=== PATIENT | male | born 1980 | race Caucasian/White ===

== ENCOUNTER 2024-01-07 20:30 | Emergency (ER) | payer OTHER, SELFPAY ==
[2024-01-07] VITALS (8 sets, daily range): BP systolic 125–154; BP diastolic 74–91; PULSE 79–113; RESP 20; TEMP 36.7; O2SAT 96–99; BMI 24.4
--- NOTE | 2024-01-07 20:42 | ED.ALLEREA ---
HPI - Allergic Reaction General Time Seen by Provider: 20:42 Date Seen: 01/07/24 Chief complaint: Allergic Reaction Stated complaint: Allergic reaction, face/tongue swelling Time Seen by Provider: 01/07/24 20:40 Source: patient and RN notes reviewed Mode of arrival: ambulatory Limitations: no limitations History of Present Illness HPI narrative: This 43-year-old male presents ambulatory to the ER with concern of an allergic reaction. Within 20 minutes of taking ibuprofen tonight both of his lips or swelling. The swelling actually started around his eyes tonight and has never been around his eyes. His cheeks and lower face actually swelled, he started to become quite concerned when he was feeling like his tongue was swelling. He did try to lie down in felt a sense like there was mucus in his lungs. He is admitting that he is having no difficulty breathing. No history of asthma. He took ibuprofen about a month ago and had some lip swelling, nothing to this extent though. He stayed away from the ibuprofen for a full month thinking he would be fine. He took a tonight for some foot pain that he is experiencing from playing pickle ball. He otherwise is on no medicines. He started having allergic issues back in August on return from [place]. He has been to his doctor, did do a 2 week course of prednisone at 1 point. In August it just started with 1/2 of his upper lip being swollen, would switch to the other side. He has had progressively worsening symptoms. He has not gone in with all of his facial swelling. He has also started to notice some hives. About a week ago he was running late, stopped at an [employer], had a burger fries and a root beer. He had a cheap pizza at 1 point, had some hives with that. Benadryl did decrease the symptoms. He otherwise has been well in between. He has not been seen by an forming fixer. complaint: allergic reaction and facial swelling Related Data Home Medications ?Medication ?Instructions ?Recorded ?Confirmed No Known Home Medications 01/07/24 01/07/24 Allergies Allergy/AdvReac Type Severity Reaction Status Date / Time ibuprofen Allergy Intermediate Face/Tongue Verified 01/07/24 20:40 Swelling Review of Systems Status of ROS Reports: 6 or more systems reviewed and unremarkable except as noted in History and below [facility] Medical History (Updated 01/07/24 @ 21:08 by Aura Domínguez MD) No significant past medical history Surgical History (Updated 01/07/24 @ 21:03 by Luis Alberto Chin RN) No significant past surgical history Social History Smoking Status: Never smoker Second hand tobacco smoke exposure: No How often do you have a drink containing alcohol: never AUDIT-C Alcohol total score: 0 Non-prescribed substance use: denies use Exam Const: Vital Signs, click to edit/add: Vital Signs - 24 hr 01/07/24 20:37 01/07/24 20:45 01/07/24 20:48 Temperature 98.0 F Pulse Rate 113 H Pulse Rate [Right Pulse Oximeter] 85 Respiratory Rate 20 20 Blood Pressure 154/88 H Blood Pressure [Le ft Upper Arm] 152/89 H Pulse Oximetry 97 99 98 Oxygen Delivery Me thod Room Air 01/07/24 21:01 Temperature Pulse Rate 104 H Pulse Rate [Right Pulse Oximeter] Respiratory Rate 20 Blood Pressure 134/85 Blood Pressure [Le ft Upper Arm] Pulse Oximetry 98 Oxygen Delivery Me thod This 43-year-old male is alert, interactive, no apparent distress but obvious facial swelling. He has swelling of his eyelids both upper and lower, still can see into his eyes however and conjunctivae are normal, conjugate gaze. He has swelling on both of his cheeks without any erythema, both upper and lower lips are significantly swollen. He can open his mouth, I can see back just into the posterior pharynx but he does have significant tongue edema. His speech is still normal, can speak in complete sentences. Despite his lips and tongue being quite swollen, his speech is still quite understandable and seems to be sustained. Neck is supple, no adenopathy. Lungs are clear, good air entry, no wheezing or crackles. CV regular, slightly fast, no murmur. Abdomen is soft, no rebound or guarding, no organomegaly. He was ambulatory into the ED of his own accord. Other skin visualized has no evidence of any rash or hives. Documenting provider has reviewed patient's vital signs: yes Course Course ED Course: Patient was given an IV, put on cardiac monitoring and pulse oximetry. 0.3 mg of epinephrine was given. We did order 125 mg Solu-Medrol, 50 mg IV Benadryl and 20 mg IV Pepcid. Have discussed with patient that he has angio edema he will absolutely need to see an forming fixer. Did order tryptase level but this is not likely to support anaphylaxis and may very well be normal. Will do the basic lab workup in up-to-date for angioedema which includes a complement for level, CBC, liver panel, basic metabolic panel, C reactive protein and sed rate. He will be watched closely. If there is any sense of him having increasing oral pharyngeal symptoms, will need to have intubation done preemptively. Reevaluation(s) Time of Reevaluation #1: 20:55 Reevaluation #1: Patient feels like his tongue is slightly improved. Will continue to be monitored quite closely. Time of Reevaluation #2: 21:30 Reevaluation #2: Rechecked patient, he states he feels like the tongue has gone down a bit. Certainly feel his facial swelling is stable to maybe just slightly improved. He is able to open his mouth, tongue is still swollen and thick but agree with him that I can see a little easier into the posterior pharynx. His oral facial swelling is certainly not progressing at this time. He continues to need to be monitored. Dr. Valladares will be assuming care. Vital Signs Vital signs: Initial Vital Signs Temperature 98.0 F 01/07/24 20:37 Temperature Source Temporal Artery Scan 01/07/24 20:37 Pulse Rate 85 01/07/24 20:37 Respiratory Rate 20 01/07/24 20:37 Blood Pressure 152/89 H 01/07/24 20:37 Blood Pressure Mean 110 H 01/07/24 20:37 Blood Pressure Position Sitting 01/07/24 20:37 Pulse Oximetry 97 01/07/24 20:37 Oxygen Delivery Method Room Air 01/07/24 20:37 Vital Signs Temperature 98.0 F 01/07/24 20:37 Pulse Rate 85 01/07/24 20:37 Respiratory Rate 20 01/07/24 20:37 Blood Pressure 152/89 H 01/07/24 20:37 Pulse Oximetry 97 01/07/24 20:37 Oxygen Delivery Method Room Air 01/07/24 20:37 Temperature 98.0 F 01/07/24 23:46 Pulse Rate 79 01/07/24 23:46 Respiratory Rate 20 01/07/24 23:46 Blood Pressure 135/74 01/07/24 23:46 Pulse Oximetry 98 01/07/24 23:45 Oxygen Delivery Method Room Air 01/07/24 23:45 Medications Administered Medications: Discontinued Medications Generic Name Dose Route Start Last Admin Trade Name Nava PRN Reason Stop Dose Admin Dexamethasone 10 mg 01/07/24 20:44 01/07/24 21:08 Dexamethasone 10 Mg/Ml Inj IVP 01/07/24 20:45 Not Given ONCE ONE Diphenhydramine HCl 50 mg 01/07/24 20:44 01/07/24 20:53 Diphenhydramine 50 Mg/Ml Inj IVP 01/07/24 20:45 50 mg ONCE ONE Administration Epinephrine HCl 0.3 mg 01/07/24 20:47 01/07/24 20:45 Epinephrine 0.3 Mg Pen IM 01/07/24 20:48 0.3 mg ONCE ONE Administration Famotidine 20 mg 01/07/24 20:47 01/07/24 20:51 Famotidine 10 Mg/Ml Inj IVP 01/07/24 20:48 20 mg ONCE ONE Administration Sodium Chloride 1,000 mls @ 500 mls/hr 01/07/24 20:45 01/07/24 21:48 0.9 % Sodium Chloride 1000 Ml IV 01/07/24 22:44 Infused .Q2H GIOVANY Infusion Methylprednisolone Sodium Succinate 125 mg 01/07/24 21:07 01/07/24 20:50 Methylprednisolone Sod Succ 62.5 Mg/Ml (125) IVP 01/07/24 21:08 125 mg ONCE ONE Administration MDM - Allergic Reaction Lab Data Labs: Lab Results 01/07/24 Range/Units 20:50 WBC 8.88 (4.50-11.00) K/uL RBC 5.27 (4.30-5.90) m/uL Hgb 16.4 (13.5-17.5) gm/dL Hct 46.8 (37.0-53.0) % MCV 89 (80-100) fL MCH 31 (26-34) pg MCHC 35 (32-36) gm/dL RDW Coeff of Juanita 12.1 (11.5-15.5) % Plt Count 267 (140-440) K/uL Neut % (Auto) 60.5 (42.0-72.0) % Lymph % (Auto) 28.5 (20-44) % Lewis % (Auto) 8.4 (0.0-11.0) % Eos % (Auto) 2.1 (0.0-7.0) % Baso % (Auto) 0.3 (0.0-3.0) % Neut # (Auto) 5.36 (1.7-7.0) K/uL Lymph # (Auto) 2.53 (0.90-2.90) K/uL Lewis # (Auto) 0.70 (0.00-0.90) K/UL Eos # (Auto) 0.19 (0.00-0.50) K/uL Baso # (Auto) 0.03 (0.00-0.30) K/uL Abs Immat Gran (auto) 0.02 (0.00-0.30) K/uL Imm/Tot Granulo (auto) 0.2 % ESR 2 (2-15) mm/hr Sodium 140 (135-149) mmol/L Potassium 3.3 L (3.6-5.1) mmol/L Chloride 104 (96-114) mmol/L Carbon Dioxide 26 (20-32) mmol/L Anion Gap 10 (7-15) mEq/L BUN 20 (5-24) mg/dL Creatinine 1.1 (0.5-1.5) mg/dL Estimated Creat Clear 88.38 Estimated GFR 86 ml/min Glucose 103 (60-115) mg/dL Calcium 8.9 (8.4-10.6) mg/dL Total Bilirubin 0.8 (0.1-1.5) mg/dL Direct Bilirubin 0.4 (0.0-0.5) mg/dL AST 30 (12-35) U/L ALT 32 (4-50) U/L Alkaline Phosphatase 82 (40-150) U/L C-Reactive Protein < 0.5 L (0.5-1.0) mg/dL Total Protein 7.7 (6.0-8.3) g/dL Albumin 5.1 H (3.3-5.0) g/dL Tryptase 7.4 (<=10.9) ug/L Complement C4 15 (10-40) mg/dL Critical Care Time Critical Care Time Critical Care Time: Yes Attestation: The patient required my highest level preparedness to intervene emergently and I personally spent this critical care time directly and personally managing the patient. This critical care time included: Obtaining a history; Examining the patient; Pulse oximetry; Ordering and reviewing of studies; Arranging urgent treatment with development of a management plan; Evaluation of patients response to treatment; Frequent reassessment discussions with other providers. This critical care time was performed to assess and manage the high probability of imminent life-threatening deterioration that could result in multiorgan failure. It was exclusive of separate billable procedures and treating other patients and teaching time. Total Critical Care Time in Minutes: 30 Discharge Plan Discharge Clinical Impression: Angioedema Patient Disposition: Home, Self-Care Condition: Stable Instructions: Angioedema (ED) Additional Instructions: It is imperative that you not take any ibuprofen or any other nonsteroidal anti inflammatory (no Aleve, no aspirin, etc). If you need something for pain, can use Tylenol. You need to contact your primary clinic and have them get you into an forming fixer as soon as possible. Let the forming fixer know that basic labs for workup of angioedema were done here in the ER and they can request records. Benaryl 25-50 mg every 6 hours for the next 3 days Prednisone as directed Follow up with your doctor in the next week to discuss Allergy follow up. Activity Level: No Restrictions Discharge Diet: Regular Prescriptions: No Action No Known Home Medications Stand Alone Forms: [employer] Info Instructions
[2024-01-07] MEDS: EPINEPHrine 0.3 MG PEN IM (20:45)
[2024-01-07] MEDS: METHYLPREDNISOLONE SOD SUCC 62.5 MG/ML (125) 125 MG IVP (20:50)
[2024-01-07] MEDS: 0.9 % SODIUM CHLORIDE 1000 ml 1,000 ML 500 ML IV (20:50)
[2024-01-07] MEDS: FAMOTIDINE 10 MG/ML inj 20 MG IVP (20:51)
[2024-01-07] MEDS: diphenhydrAMINE 50 MG/ML inj IVP (20:53)
[2024-01-07 21:05] LABS: Basophils Absolute Auto 0.03 K/uL (0.00-0.30); Basophils Percent Auto 0.3 % (0.0-3.0); Eosinophils Absolute Auto 0.19 K/uL (0.00-0.50); Eosinophils Percent Auto 2.1 % (0.0-7.0); Hematocrit 46.8 % (37.0-53.0); Hemoglobin* 16.4 gm/dL (13.5-17.5); Immature Granulocytes Abs Auto 0.02 K/uL (0.00-0.30); Immature Granulocytes Pct Auto 0.2 %; Lymphocytes Absolute Auto 2.53 K/uL (0.90-2.90); Lymphocytes Percent Auto 28.5 % (20-44); Mean Corpuscular HGB Conc 35 gm/dL (32-36); Mean Corpuscular Hemoglobin 31 pg (26-34); Mean Corpuscular Volume 89 fL (80-100); Monocytes Percent Auto 8.4 % (0.0-11.0); Neutrophils Absolute Auto 5.36 K/uL (1.7-7.0); Neutrophils Percent Auto 60.5 % (42.0-72.0); Platelet Count* 267 K/uL (140-440); RDW Coefficient of Variation % 12.1 % (11.5-15.5); Red Blood Count 5.27 m/uL (4.30-5.90); White Blood Count* 8.88 K/uL (4.50-11.00)
[2024-01-07 21:08] LABS: Slide Review Reflex No
[2024-01-07 21:18] LABS: Albumin* 5.1 g/dL (3.3-5.0); Chloride* 104 mmol/L (96-114); Sodium* 140 mmol/L (135-149)
[2024-01-07 21:19] LABS: Potassium* 3.3 mmol/L (3.6-5.1)
[2024-01-07 21:21] LABS: Creatinine* 1.1 mg/dL (0.5-1.5); Est. Creatinine Clearance* 88.38; Estimated Glomerular Filt Rate 86 ml/min
[2024-01-07 21:22] LABS: Alanine Aminotransferase* 32 U/L (4-50); Alkaline Phosphatase* 82 U/L (40-150); Anion Gap 10 mEq/L (7-15); Aspartate Amino Transferase* 30 U/L (12-35); Bilirubin Direct* 0.4 mg/dL (0.0-0.5); Bilirubin Total* 0.8 mg/dL (0.1-1.5); Blood Urea Nitrogen* 20 mg/dL (5-24); Calcium* 8.9 mg/dL (8.4-10.6); Carbon Dioxide* 26 mmol/L (20-32); Glucose* 103 mg/dL (60-115); Total Protein* 7.7 g/dL (6.0-8.3)
[2024-01-07 21:26] LABS: C Reactive Protein* < 0.5 mg/dL (0.5-1.0)
[2024-01-07 22:03] LABS: Erythrocyte SedimentationRate* 2 mm/hr (2-15)
[2024-01-10 16:59] LABS: Complement Component 4 15 mg/dL (10-40)
== END 2024-01-07 23:46 | disposition home or self-care (01) ==
PROVIDERS: Emergency Provider Family Medicine; PCP Family Medicine
DX: H57.89 Other specified disorders of eye and adnexa (principal); T78.40XA Allergy, unspecified, initial encounter
CPT/HCPCS: 36415; 80053; 82248; 83520; 85025; 85651; 86140; 86160; 94761; 96372; 96374; 96375; 99284; 99291; J0171; J1200; J2919; J7030; S0028